=== PATIENT | female | born 1960 | race Caucasian/White ===

== ENCOUNTER 2017-05-29 16:53 | Emergency (ER) | payer SELFPAY ==
[~2017-05-29] VITALS: Ht 172.7 cm; Wt 89.4 kg
[2017-05-29 17:30] VITALS: BP 146/79
== END 2017-05-29 17:30 | disposition home or self-care (01) ==
LOC: EME 16:53
DX: R68.83 Chills (without fever) (principal); Z59.0 Homelessness
CPT/HCPCS: 99281; 99283